=== PATIENT | female | born 1970 | race Caucasian/White ===

== ENCOUNTER → 2016-11-08 | Day surgery (SDC) | payer OTHER ==
[~2016-11-08] VITALS: Ht 154.9 cm; Wt 71.2 kg
[~2016-11-08] MED LIST: AMBIEN10 M1 PO; FERROUS SULFAT325 M3 PO; SYNTHROID100 MCG PO; TIZANIDINE HCL6 MG
[2016-11-08 06:48] LABS: ABSOLUTE BASOPHIL COUNT 0.1 /CUMM (0.0-0.2); ABSOLUTE EOSINOPHIL COUNT 0.2 /CUMM (0.0-0.7); ABSOLUTE GRANULOCYTE CT 6.2 /CUMM (1.4-6.5); ABSOLUTE LYMPH COUNT 4.2 /CUMM (1.2-3.4); ABSOLUTE MONOCYTE COUNT 0.9 /CUMM (0.10-0.60); BASOPHIL % 0.5 % (0.0-2.0); EOSINOPHIL % 2.1 % (0-5); HEMATOCRIT 36.1 % (37-47); MEAN CORPUSCULAR HGB 25.3 PG (27.0-31.0); MEAN CORPUSCULAR HGB CONC 32.4 G/DL (33.0-37.0); MEAN CORPUSCULAR VOLUME 78.2 FL (81.0-99.0); MEAN PLATELET VOLUME 9.1 FL (7.4-10.4); PLATELET COUNT 292 /CUMM (130-400); RBC DISTRIBUTION WIDTH 17.3 % (11.5-14.5); RED BLOOD CELL CT 4.62 /CUMM (4.20-5.40); WHITE BLOOD CELL COUNT 11.5 /CUMM (4.8-10.8)
[2016-11-08 07:19] LABS: GRANULOCYTE % 53.4 % (42.2-75.2)
--- NOTE | 2016-11-13 10:00 | Operative Report ---
Operative/Inv Procedure Report Surgery Date: 11/08/16 Name of Procedure: hysterscopy D&C endometrial ablation Pre-Operative Diagnosis: menorrhagia Post-Operative Diagnosis: same Estimated Blood Loss: less than 50ml Surgeon/Bank Worker: BABAK SHIPMAN,CARMENCITA Alex Anesthesia: laryngeal mask airway Specimens: [facility] [place] Complications: none Condition: good Operative/Procedure Note Note: The patient was brought to the operating room placed in dorsal supine position a timeout was done with the patient awake. After the induction of anesthesia second timeout was done patient was placed in low stirrups examination under anesthesia was performed a speculum was placed in the vagina the anterior lip of the cervix was grasped with a single-tooth tenaculum. The endocervical canal was dilated and a hysteroscope was introduced noting normal findings photos were taken. This was followed by a sharp curettage OF the endometrial cavity which was sent to pathology for examination the uterus was sounded to 8cm the cervix was measured to be 3.5 cm the NovaSure device was therefore set 4.5 cm the NovaSure device was seated the width of the endometrial canal was noted to be 4 cm after testing for integrity A1.5 minute treatment cycle was undertaken there were no complications single-tooth tenaculum was removed and the patient was moved to recovery in good condition sponge instrument and needle counts were correct 3 Discharge Disposition: PACU
== END ==
LOC: STS 01:47
PROVIDERS: Obstetrics & Gynecology
DX: N92.1 Excessive and frequent menstruation with irregular cycle (principal); K21.9 Gastro-esophageal reflux disease without esophagitis
CPT/HCPCS: 36415; 81025; 88305; J0131; J2250